=== PATIENT | female | born 1995 | race Two or more races ===

== ENCOUNTER 2024-07-27 10:25 | Outpatient (CLI) | payer OTHER | END 2024-07-27 10:32 | disposition home or self-care (01) | LOC: SONOGRAMA 10:25 | PROVIDERS: ATTEND Student in an Organized Health Care Education/Training Program | DX: M79.651 Pain in right thigh (principal); M25.551 Pain in right hip; M99.01 Segmental and somatic dysfunction of cervical region; M99.02 Segmental and somatic dysfunction of thoracic region; M99.03 Segmental and somatic dysfunction of lumbar region; M99.04 Segmental and somatic dysfunction of sacral region; M99.05 Segmental and somatic dysfunction of pelvic region; N60.11 Diffuse cystic mastopathy of right breast; N60.12 Diffuse cystic mastopathy of left breast ==